=== PATIENT | male | born 1965 | race Caucasian/White ===

== ENCOUNTER 2017-02-06 09:36 | Emergency (ER) | payer BC ==
--- NOTE | 2017-02-06 09:59 | EDM.PDOC ---
ED HPI GENERAL MEDICAL PROBLEM - General Chief Complaint: Cardiovascular Problem Stated Complaint: DIZZY X AND CONFUSED Time Seen by Provider: 02/06/17 09:57 Source of Information: Reports: Patient, Family History Limitations: Reports: No Limitations - History of Present Illness INITIAL COMMENTS - FREE TEXT/NARRATIVE: 51-year-old male presents to the ED with a feeling of just feeling off kilter. States she's not felt well for the last 2-3 days. Seems to be getting intermittent episodes of dizziness which I cannot pinpoint as a true vertigo. Fixed almost to the point of spinning or off kilter. He's not staggered or lost his balance. He has a normal associated nausea vomiting. No recent falls or closed head injuries. He is working long hours 16-18 hours as of late and does feel that he is taking adequate fluids and nutrition. He is on no medications and takes no [id number] medications. He does not drink alcohol. 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 Blood pressure usually runs about 110 systolic range. He has been drinking a fair amount of water as of recent. Possibility of hyponatremia therefore exists. reports intermittent bouts of confusional state where he doesn't seem to remember what he was going to do or say. Onset: Gradual Onset Date: 02/03/17 Duration: Day(s): Location: Reports: Other (She is to be neurologically related in terms of feeling off balance but not true vertiginous episodes associated confusion only bands. These all seem to be transient. He seems to be extremely busy working 16- 18 hours a day and possibly is preoccupied by other things going on in his life. ) Quality: Reports: Other Severity: Moderate (Denies any headache.) Improves with: Reports: None Worsens with: Reports: None Context: Denies: Activity, Exercise, Lifting, Sick Contact, Trauma, Other Associated Symptoms: Reports: Confusion (Seems to not be able to remember what he was going to say or what he was going to do.), Diaphoresis, Other (Perhaps some mild night sweats.). 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 [No Known Home Meds] 02/06/17 [History] Past Medical History Cardiovascular History: Reports: CT - Past Surgical History GI Surgical History: Reports: Hernia, Inguinal Social & Family History - Tobacco Use Smoking Status *Q: Never Smoker - Caffeine Use Caffeine Use: Reports: Coffee - Recreational Drug Use Recreational Drug Use: No - Living Situation & Occupation Living situation: Reports: Occupation: Employed ED ROS GENERAL - Review of Systems Review Of Systems: See Below Constitutional: Denies: Fever, Chills, Malaise, Weakness, Fatigue HEENT: Reports: No Symptoms Respiratory: Reports: No Symptoms Cardiovascular: Reports: No Symptoms Endocrine: Reports: No Symptoms GI/Abdominal: Reports: No Symptoms : Reports: No Symptoms, Other (Nocturia 2 nightly.) Musculoskeletal: Reports: No Symptoms Skin: Reports: No Symptoms Neurological: Reports: Confusion, Dizziness, Weakness. Denies: Headache, Numbness, Paresthesia, Pre-Existing Deficit, Seizure, Syncope, Tingling, Tremors , Difficulty Walking, Change in Speech, Gait Disturbance Psychiatric: Reports: No Symptoms Hematologic/Lymphatic: Reports: No Symptoms Immunologic: Reports: No Symptoms ED EXAM, GENERAL - Physical Exam Exam: See Below Exam Limited By: No Limitations General Appearance: Alert, WD/WN, No Apparent Distress Eye Exam: Bilateral Eye: Normal Inspection, PERRL Ears: Normal TMs, Other (Denies any humming , or buzzing in his ears.) Throat/Mouth: Normal Inspection, Normal Lips, Normal Teeth, Normal Oropharynx, Other Head: Atraumatic, Normocephalic Neck: Normal Inspection (Uvula is in the midline), Supple, Non-Tender, Full Range of Motion. No: Carotid Bruit, Lymphadenopathy (L), Lymphadenopathy (R) Respiratory/Chest: No Respiratory Distress, Lungs Clear, Normal Breath Sounds Cardiovascular: Normal Peripheral Pulses, Regular Rate, Rhythm, No Edema, No Gallop, No Murmur Peripheral Pulses: 2+: Posterior Tibial (L), Posterior Tibial (R), Dorsalis Pedis (L), Dorsalis Pedis (R) GI/Abdominal: Normal Bowel Sounds, Soft, Non-Tender, No Organomegaly, No Distention (Male) Exam: No Hernia Back Exam: Normal Inspection, Full Range of Motion Extremities: Normal Inspection, Normal Range of Motion, Non-Tender, No Pedal Edema, Normal Capillary Refill Neurological: Alert, Oriented, CN II-XII Intact, Normal Cognition, Normal Gait, No Motor/Sensory Deficits, Other (Normal finger to nose and normal rapid alternating movements. No pronator drift. Cranial nerves II-12 intact.). No: Inattentive, Confused, Memory Loss Remote Events, Abnormal Gait, Abnormal Reflexes Psychiatric: Normal Affect, Normal Mood Skin Exam: Warm, Dry, Intact, Normal Color, No Rash EKG INTERPRETATION EKG Date: 02/06/17 Time: 10:20 Rhythm: NSR Rate (Beats/Min): 76 [place]: Normal P-Wave: Present QRS: Other (Nonspecific intraventricular conduction delay.) ST-T: Normal QT: Prolonged (Mildly prolonged) Course - Vital Signs Last Recorded V/S: Last Vital Signs Temp 36.1 C 02/06/17 09:41 Pulse 78 02/06/17 09:41 Resp 16 02/06/17 09:41 BP 148/92 H 02/06/17 11:23 Pulse Ox 96 02/06/17 09:41 - Orders/Labs/Meds Orders: Active Orders 24 hr Category Date Time Status EKG Documentation Completion [RC] STAT Care 02/06/17 09:59 Active Head wo Cont [CT] Stat Exams 02/06/17 09:56 Taken Labs: Laboratory Tests 02/06/17 02/06/17 02/06/17 Range/Units 10:00 10:00 10:00 WBC 6.36 (4.23-9.07) K/mm3 RBC 5.13 (4.63-6.08) M/mm3 Hgb 15.3 (13.7-17.5) gm/L Hct 44.5 (40.1-51.0) % MCV 86.7 (79.0-92.2) fl MCH 29.8 (25.7-32.2) pg MCHC 34.4 (32.2-35.5) g/dl RDW Std Deviation 41.4 (35.1-43.9) fL Plt Count 200 (163-337) K/mm3 MPV 9.5 (9.4-12.3) fl Neutrophils % (Manual) 67 H (40-60) % Band Neutrophils % 1 (0-10) % Lymphocytes % (Manual) 25 (20-40) % Atypical Lymphs % 0 % Monocytes % (Manual) 4 (2-10) % Eosinophils % (Manual) 3 (0.8-7.0) % Basophils % (Manual) 0 L (0.2-1.2) Platelet Estimate Adequate RBC Morph Comment Normal Sodium 138 (136-145) mEq/L Potassium 3.9 (3.5-5.1) mEq/L Chloride 104 (98-107) mEq/L Carbon Dioxide 26 (21-32) mEq/L Anion Gap 11.9 (5-15) BUN 18 (7-18) mg/dL Creatinine 1.0 (0.7-1.3) mg/dL Est Cr Clr Drug Dosing 90.99 mL/min Estimated GFR (MDRD) > 60 (>60) mL/min BUN/Creatinine Ratio 18.0 (14-18) Glucose 123 H (74-106) mg/dL Serum Osmolality 291 (280-300) mosm/kg Calcium 9.0 (8.5-10.1) mg/dL Total Bilirubin 0.5 (0.2-1.0) mg/dL AST 28 (15-37) U/L ALT 45 (16-63) U/L Alkaline Phosphatase 71 (46-116) U/L C-Reactive Protein < 0.2 (<1.0) mg/dL Total Protein 7.2 (6.4-8.2) g/dl Albumin 3.9 (3.4-5.0) g/dl Globulin 3.3 gm/dL Albumin/Globulin Ratio 1.2 (1-2) TSH 3rd Generation 1.670 (0.358-3.74) uIU/mL Meds: Medications Discontinued Medications Generic Name Dose Route Start Last Admin Trade Name Freq PRN Reason Stop Dose Admin Sodium Chloride 1,000 mls @ 100 mls/hr 02/06/17 10:00 02/06/17 10:02 Normal Saline IV 100 mls/hr ASDIRECTED HEAVEN Administration - Radiology Interpretation Free Text/Narrative:: 51-year-old male presents to the ED with rather nonspecific symptoms. Feels dizzy but really doesn't feel like a dim vision like is going to blackout does have a mild component of filling offkilter but not true vertigo where there is actual spinning of the room or himself. No associated nausea vomiting. He can eat okay his reports it seems to be confused at times where he seems to be lost as to what he was going to say or do next. This is very typical behavior for him. Symptoms of been present off and on for the last 3 days. Falls or closed head injuries. Examination is completely normal. This includes a neuro exam. Plan CT head will be done. Routine labs to be done IV normal saline at 100 mils per hour for now. - Re-Assessments/Exams Free Text/Narrative Re-Assessment/Exam: 02/06/17 11:10 CT of the brain was read as normal by the red and I also had a look and did not see any abnormalities whatsoever. Lab work revealed a white count of 6.36 with a normal differential hemoglobin is 15.3 hematocrit of 44.5 platelets 200,000. Sodium 138 potassium 3.9 glucose is 123 and a gap is 11.9 cm osmolality 291. No other abnormalities were appreciated lab work. Is happy dysuria this a.m. however it appears that his long working hours 16-18 hours a day are probably started to cause some issues with his ability to continue to function. He recognizes more difficult to follow sleep. He gets a very early to attend work and has a lot on his plate at this time. Therefore I think his major problem is being overstressed and not having enough down time to properly sleep etc. No treatment is advised at this time to try and cut back on work hours and getting more rest Departure - Departure Time of Disposition: 11:11 Disposition: Home, Self-Care 01 Condition: Fair Clinical Impression: Confusion, hx of, without neuro findings, Dizziness, nonspecific Instructions: Dizziness, [id number] Referrals: PCP,None [Primary Care Provider] - Forms: ED Department Discharge Additional Instructions: Evaluation in the emergency room this morning in regards to symptoms of feeling intermittently confused and disoriented as well as dizziness with near vertigo symptoms i.e. a sense of spinning offkilter. CT scan of the brain was therefore carried out in spite of a normal neuro exam hand CT of the brain proved to be completely normal. Lab work was pursued and was found to be completely normal with no evidence of any electrolyte kidney or liver problems. Therefore it appears that stress with excessive work and limited downtime to sleep and rest and pursue other enjoyable activities is starting to cause problems. Therefore of course the treatment is to try and will withdraw from the workplace 2-3 hours earlier each day and spend time either resting or pursuing a hobby or exercise program etc. Follow-up with personal physician if any further problems occur. The pressure was noted to be quite high when you came into the ED but did settle with time. It remains borderline high which would go along with hyper stress state. - My Orders Last 24 Hours: My Active Orders 02/06/17 09:56 Head wo Cont [CT] Stat 02/06/17 09:59 EKG Documentation Completion [RC] STAT - Assessment/Plan Last 24 Hours: My Active Orders 02/06/17 09:56 Head wo Cont [CT] Stat 02/06/17 09:59 EKG Documentation Completion [RC] STAT
[2017-02-06] MEDS ORDERED: Sodium Chloride 0.9% 1,000 ML IV SCH (10:00)
[2017-02-06 11:26] VITALS: BP 148/92
--- NOTE | 2017-02-07 17:37 | CT ---
Head CT Technique: Multiple axial sections through the brain were obtained. Intravenous contrast was not utilized. Comparison: No prior intracranial imaging. Findings: Ventricles along the basal cisterns and sulci over the convexities are within normal limits for the patient's age. No abnormal parenchymal densities are seen. No evidence of intracranial hemorrhage. No midline shift or mass effect is seen. Slight dolichoectasia is partially visualized within the left vertebral artery. Bone window settings were reviewed which shows the visualized sinuses to appear clear. No acute calvarial abnormality is seen. Impression: 1. Nothing acute is appreciated on noncontrast head CT exam. Diagnostic code #2 Agree with preliminary report issued by [employer] ([facility] preliminary report dictated on 02/06/17, 11:22 AM Central Time)
== END 2017-02-06 11:23 | disposition home or self-care (01) ==
LOC: JD.ED 09:36
DX: R42 Dizziness and giddiness (principal); R41.0 Disorientation, unspecified; I25.2 Old myocardial infarction; Z98.890 Other specified postprocedural states
CPT/HCPCS: 36415; 70450; 80053; 83930; 84443; 85025; 86140; 93005; 96360; 99285; J7040; 99284

== ENCOUNTER 2019-04-16 08:00 | Inpatient (IN) | payer BC ==
[~2019-04-16 08:00] MED LIST: Lactated Ringers 1,000 ML IV SCH; Lidocaine 1%/Sod Bicarbonate in NS 8.4% 1 ML Syringe IDERM PRN; Sodium Chloride 0.9% 10 ML Syringe FLUSH PRN
[2019-05-25] MEDS ORDERED: Lidocaine 1%/Sod Bicarbonate in NS 8.4% 1 ML Syringe IDERM PRN (07:44)
[2019-05-25] MEDS ORDERED: Sodium Chloride 0.9% 10 ML Syringe FLUSH PRN (07:44)
[2019-05-25] MEDS ORDERED: Lactated Ringers 1,000 ML IV SCH (07:45)
[2019-05-26] MEDS ORDERED: Lidocaine 1% with EPINEPHrine 1:100,000 20 ML MDV ONE (10:21)
[2019-05-26] MEDS ORDERED: Rocuronium 50 MG/5 ML Vial ONE (12:15)
[2019-05-26] MEDS ORDERED: Lactated Ringers 1,000 ML ONE ×4 (12:15→15:56)
[2019-05-26] MEDS ORDERED: Dexamethasone 4 MG/ML SDV ONE (12:15)
[2019-05-26] MEDS ORDERED: Lidocaine 1% 6 ML ONE (12:15)
[2019-05-26] MEDS ORDERED: Ketorolac 15 MG/ML SDV ONE (12:15)
[2019-05-26] MEDS ORDERED: ceFAZolin 1 GM Vial ONE (12:15)
[2019-05-26] MEDS ORDERED: Ondansetron 4 MG/2 ML SDV ONE (12:15)
[2019-05-26] MEDS ORDERED: fentaNYL 100 MCG/2 ML SDV ONE (12:16)
[2019-05-26] MEDS ORDERED: Propofol 200 MG/20 ML SDV ONE (12:16)
[2019-05-26] MEDS ORDERED: Midazolam 1 MG/ML 2 ML SDV ONE (12:17)
[2019-05-26] MEDS ORDERED: fentaNYL 250 MCG/5 ML SDV ONE (12:18)
[2019-05-26] MEDS ORDERED: Morphine PF 10 MG/10 ML SDV ONE (12:33)
--- NOTE | 2019-05-26 12:55 | PCM.PREANE ---
Preanesthetic Assessment - Anesthesia/Transfusion/Family Hx Anesthesia History: Prior Anesthesia Without Reaction Family History of Anesthesia Reaction: No Transfusion History: No Prior Transfusion(s) Intubation History: Unknown - Review of Systems General: No Symptoms Pulmonary: No Symptoms (snoring, ETOH: rarely) Cardiovascular: No Symptoms (elevated cholesterol, CAD in [place] artery, HTN/ history of [place] at the age of 37.) Gastrointestinal: No Symptoms Neurological: No Symptoms Other: Reports: None, Diabetes ([id number] [id number]) - Physical Assessment NPO Status Date: 05/25/19 NPO Status Time: 18:00 Vital Signs: Last Vital Signs Temp 36.4 C 05/26/19 09:55 Pulse 66 05/26/19 09:55 Resp 16 05/26/19 09:55 BP 136/84 05/26/19 09:55 Pulse Ox 96 05/26/19 09:55 Height: 1.8 m Weight: 91.172 kg ASA Class: 2 Mental Status: Alert & Oriented x3 Airway Class: Mallampati = 2 Dentition: Reports: Normal Dentition, Partial (one permanent front tooth), Caries Thyro-Mental Finger Breadths: 3 Mouth Opening Finger Breadths: 3 ROM/Head Extension: Full Lungs: Clear to Auscultation, Normal Respiratory Effort Cardiovascular: Regular Rate, Regular Rhythm, No Murmurs - Lab Values: Laboratory Last Values POC Glucose 100 mg/dL (70-105) 05/26/19 10:45 All labs reviewed and noted and within acceptable ranges to proceed with scheduled procedure. - Imaging/EKG Impressions: Cardiolyte stress Test: normal EF, no definite findings of reversible ischemia are seen Carotid US: Small amount of plaque noted in right internal carotid artery EKG: SR rate=80, borderline T wave abnormalities Echocardiogram: Mild concentric left ventricular hypertrophy, trace mitral valve regurgitation EF= 60-65% - Allergies Allergies/Adverse Reactions: Allergies Allergy/AdvReac Type Severity Reaction Status Date / Time sweet potato Allergy Vomiting Verified 05/25/19 12:21 - Anesthesia Plan Pre-Op Medication Ordered: None - Acknowledgements Anesthesia Type Planned: General Anesthesia, Epidural (for post operative pain control) Pt an Appropriate Candidate for the Planned Anesthesia: Yes Alternatives and Risks of Anesthesia Discussed w Pt/Guardian: Yes Pt/Guardian Understands and Agrees with Anesthesia Plan: Yes PreAnesthesia Questionnaire HEENT History: Reports: None Cardiovascular History: Reports: CAD, High Cholesterol, Hypertension Respiratory History: Reports: Other (See Below) Other Respiratory History: SNORING Gastrointestinal History: Reports: Other (See Below) Other Gastrointestinal History: ABDOMINAL HERNIA, INGUINAL HERNIA Genitourinary History: Reports: None CRM 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 LEAD History: Reports: None Musculoskeletal History: Reports: None Neurological History: Reports: None Psychiatric History: Reports: None Endocrine/Metabolic History: Reports: None Hematologic History: Reports: None Immunologic History: Reports: None Oncologic (Cancer) History: Reports: None Dermatologic History: Reports: None - Past Surgical History Head Surgeries/Procedures: Reports: None HEENT Surgical History: Reports: None Cardiovascular Surgical History: Reports: None Respiratory Surgical History: Reports: None GI Surgical History: Reports: Hernia, Inguinal Female Surgical History: Reports: None Male Surgical History: Reports: None Endocrine Surgical History: Reports: None Neurological Surgical History: Reports: None Musculoskeletal Surgical History: Reports: None Oncologic Surgical History: Reports: None Dermatological Surgical History: Reports: None - SUBSTANCE USE Smoking Status *Q: Never Smoker Recreational Drug Use History: No - HOME MEDS Home Medications: Home Meds Aspirin [Halfprin] 81 mg PO DAILY 05/25/19 [History] Losartan Potassium 25 mg PO DAILY 05/25/19 [History] Rosuvastatin Calcium 10 mg PO BEDTIME 05/25/19 [History] - CURRENT (IN HOUSE) MEDS Current Meds: Current Medications Discontinued Medications Bupivacaine HCl/Epinephrine Bitart (Marcaine 0.5%/Epinephrine 1:200,000) Confirm Administered Dose 50 ml .ROUTE .STK-MED ONE Stop: 05/26/19 10:22 Cefazolin Sodium (Ancef) Confirm Administered Dose 2 gm .ROUTE .STK-MED ONE Stop: 05/26/19 12:16 Dexamethasone (Dexamethasone) Confirm Administered Dose 4 mg .ROUTE .STK-MED ONE Stop: 05/26/19 12:16 Fentanyl (Sublimaze) Confirm Administered Dose 100 mcg .ROUTE .STK-MED ONE Stop: 05/26/19 12:17 Fentanyl (Sublimaze) Confirm Administered Dose 250 mcg .ROUTE .STK-MED ONE Stop: 05/26/19 12:19 Lactated Ringer's (Ringers, Lactated) 1,000 mls @ 125 mls/hr IV ASDIRECTED HEAVEN Stop: 04/16/19 23:00 Lactated Ringer's (Ringers, Lactated) 1,000 mls @ 125 mls/hr IV ASDIRECTED HEAVEN Stop: 05/25/19 23:00 Last Admin: 05/26/19 10:10 Dose: 125 mls/hr Lidocaine HCl (Xylocaine-Mpf 1%) Confirm Administered Dose 6 mls @ as directed .ROUTE .STK-MED ONE Stop: 05/26/19 12:16 Lactated Ringer's (Ringers, Lactated) Confirm Administered Dose 1,000 mls @ as directed .ROUTE .STK-MED ONE Stop: 05/26/19 12:16 Ketorolac Tromethamine (Toradol) Confirm Administered Dose 30 mg .ROUTE .STK- MED ONE Stop: 05/26/19 12:16 Lidocaine/Epinephrine (Xylocaine 1% With Epinephrine 1:100,000) Confirm Administered Dose 20 ml .ROUTE .STK-MED ONE Stop: 05/26/19 10:22 Lidocaine/Sodium Bicarbonate (Buffered Lidocaine 1% In Ns 8.4%) 0.25 ml IDERM ONETIME PRN PRN Reason: Prior to IV Start Stop: 04/16/19 18:00 Lidocaine/Sodium Bicarbonate (Buffered Lidocaine 1% In Ns 8.4%) 0.25 ml IDERM ONETIME PRN PRN Reason: Prior to IV Start Stop: 05/25/19 18:00 Last Admin: 05/26/19 10:09 Dose: 0.25 ml Midazolam HCl (Versed 1 Mg/Ml) Confirm Administered Dose 2 mg .ROUTE .STK-MED ONE Stop: 05/26/19 12:18 Morphine Sulfate (Duramorph Pf) Confirm Administered Dose 10 mg .ROUTE .STK-MED ONE Stop: 05/26/19 12:34 Ondansetron HCl (Zofran) Confirm Administered Dose 4 mg .ROUTE .STK-MED ONE Stop: 05/26/19 12:16 Propofol (Diprivan 20 Ml) Confirm Administered Dose 200 mg .ROUTE .STK-MED ONE Stop: 05/26/19 12:17 Rocuronium [place] (Zemuron) Confirm Administered Dose 50 mg .ROUTE .STK-MED ONE Stop: 05/26/19 12:16 Sodium Chloride (Saline Flush) 10 ml FLUSH ASDIRECTED PRN PRN Reason: Keep Vein Open Stop: 04/16/19 18:00 Sodium Chloride (Saline Flush) 10 ml FLUSH ASDIRECTED PRN PRN Reason: Keep Vein Open Stop: 05/25/19 18:00
[2019-05-26] MEDS ORDERED: Bupivacaine 0.25% 10 ML SDV ONE (13:22)
--- NOTE | 2019-05-26 14:14 | PCM.SN ---
- Free Text/Narrative Note: Date: 05/26/2019 Time Out: 1325 Start: 1326 Stop: 1345 Procedure: Epidural catheter placement for post operative pain control requested by Dr. Montejo. Chart reviewed, allergies noted, consent signed, and risk/benefits discussed with patient. Patient sitting up for Epidural placement. Monitors/alarms on/ O2 placed at 3LPM. Versed 2mg IV given at 1330. L3-L4 location noted and prepped times 3 betadine swabs. Site localized with 3ml's of 1% lidocaine 17 gauge tuohy advanced with CLARISA noted at 5cm. 19 gauge catheter placed and secured via tegaderm at 10cm. Epidural site secured with tape and dosed up with the following medications: (-) test dose: 45mg lidocaine with 15mcg of epinepherine. 100 mcg of fentanyl 10ml's of 0.25% marcaine Dosing involved negative aspiration and incremental dosing. Filter and Cap noted on epidural catheter along with label. Thank you. Arely VICTORIA
[2019-05-26] MEDS ORDERED: Rocuronium 100 MG/10 ML MDV ONE (14:19)
[2019-05-26] MEDS: Bupivacaine 0.5%/EPINEPHrine 1:200,000 50 ML MDV ONE ×2 (14:37→16:00)
[2019-05-26] MEDS ORDERED: Phenylephrine/Normal Saline 100 MCG/ML 10 ML Syringe ONE (14:50)
[2019-05-26] MEDS ORDERED: HYDROmorphone 0.5 MG/0.5 ML Syringe ONE ×2 (15:37→16:01)
[2019-05-26] MEDS ORDERED: diphenhydrAMINE 50 MG/ML SDV IVPUSH PRN (15:50)
[2019-05-26] MEDS ORDERED: fentaNYL 100 MCG/2 ML SDV IVPUSH PRN (15:50)
[2019-05-26] MEDS ORDERED: ePHEDrine 50 MG/ML SDV IVPUSH PRN (15:50)
[2019-05-26] MEDS ORDERED: Haloperidol Lactate 5 MG/ML SDV IVPUSH PRN (15:50)
[2019-05-26] MEDS ORDERED: Ondansetron 4 MG/2 ML SDV IVPUSH PRN (15:50)
[2019-05-26] MEDS ORDERED: HYDROmorphone 0.5 MG/0.5 ML Syringe IVPUSH PRN (15:50)
[2019-05-26] MEDS ORDERED: Neostigmine Methylsulfate 1 MG/ML 5 ML Syringe ONE (15:59)
[2019-05-26] MEDS ORDERED: Phenylephrine 1 MG in Sodium Chloride 0.9% 10 ML IV SCH (16:00)
[2019-05-26] MEDS ORDERED: Lactated Ringers 1,000 ML IV SCH (16:45)
--- NOTE | 2019-05-26 17:01 | PCM.PRNOTE ---
- Free Text/Narrative Note: Date: 05/26/2019 Operation: open redo right inguinal hernia repair via laparotomy and retrorectus repair of ventral hernia Surgeon: Cosmo Montejo MD Findings: remnant of old mesh repair noted during exposure and reduction of right inguinal hernia. The mouth of the hernia was wide enough to permit my index finger snugly. The sac was inverted, and it was noted to be large and thick, and there may have been a sliding component involving bladder. Mongolian cheese fascia along midline with small fat containing hernias. Diastasis recti. Reeve-Stoppa repair completed. Detailed Report: The patient was taken to the operating room and placed supine. Timeout was performed, and general endotracheal anesthesia was administered. The left arm was tucked to the patient side, and a [place] catheter was placed. Abdominal hair was clipped. The abdomen was prepped and draped in usual sterile fashion. A midline laparotomy incision was made from the mid epigastrium to the infraumbilical region between the umbilicus and the pubic symphysis. A small epigastric hernia sac was encountered on dissection, sac was opened and omental fat was reduced. The surgeons left finger was inserted into the abdominal cavity, and the laparotomy was extended providing exposure of the abdominal contents. The Bookwalter retractor was set up to aid with exposure of the right inguinal region. Once the mouth of the hernia was correctly identified, the peritoneum was incised from the intraperitoneal side as would be done with a standard laparoscopic inguinal hernia repair. The preperitoneal fat was reflected anteriorly away from the peritoneum, and the plane was developed down towards the pubic bone. Buddy's ligament was palpated, and dissection was done circumferentially bluntly with the finger to help free up the hernia sac. With continued manipulation, the hernia sac was inverted, and by palpation the spermatic cord was preserved in its proper position. The peritoneum was attracted in order to provide adequate exposure of the myopectineal orifice for placement of mesh. A 9 x 15 cm piece of pro-cost accounting clerk mesh was cut to shape, and laid in the pocket of dissection, with good medial and inferior overlap at Buddy's ligament.?Was secured in place at this location with a single tacking Vicryl suture. Peritoneal flap was then closed over the mesh closure with a few interrupted Vicryl sutures. The hernia sac was thickened and large, and rather than pursue resection, I left in place after cleaning it up some due to concern for sliding hernia involving bladder or other viscera, although the sigmoid colon was well retracted away from the field of dissection. Next, we turned our attention to the ventral abdominal wall repair. The posterior aspect of the rectus sheath was grasped medially, and incised in order to expose the medial aspect of the rectus muscle. This line of division was extended superiorly and inferiorly, and the rectus muscle was reflected laterally, providing good exposure of the posterior sheath. With the plane for mesh placement cleared, a running 0 PDS suture was used to reclose the posterior sheath re-creating the linea alba. The mesh was laid in place and secured at the superior midline portion with a single Prolene suture. The mesh lay flat nicely in the retrorectus space. The anterior fascia was then cleared of overlying subcutaneous fat a few centimeters off of midline around the length of the incision. Anterior fascia was closed with running 0 PDS suture. Skin was closed with skin oriana, and the wound was dressed with gauze and Tegaderm. A total of 20 cc 0.5% Marcaine with epinephrine was injected along the length of the incision. The patient tolerated the procedure well. Cosmo Montejo MD General Surgery
--- NOTE | 2019-05-26 17:19 | PCM.POSTAN ---
POST ANESTHESIA ASSESSMENT - MENTAL STATUS Mental Status: Alert - VITAL SIGNS Vital Signs: Last Vital Signs Temp 97.5 05/26/19 165 Pulse 79 05/26/19 1657 Resp 22 05/26/191656 BP 151/97 05/26/191656 Pulse Ox 92% 05/26/191656 - RESPIRATORY Respiratory Status: Respiratory Rate WNL, Airway Patent, O2 Saturation Stable, Supplemental Oxygen - CARDIOVASCULAR CV Status: Pulse Rate WNL, Blood Pressure Stable - GASTROINTESTINAL GI Status: No Symptoms - POST OP HYDRATION Hydration Status: Adequate & Stable
[2019-05-26] MEDS: Acetaminophen 325 MG Tab PO SCH (19:45)
[2019-05-27] MEDS: Acetaminophen 325 MG Tab PO SCH ×3 (01:17→16:25)
--- NOTE | 2019-05-27 04:48 | PCM48HPAN ---
Post Anesthesia Note - EVALUATION WITHIN 48HRS OF ANESTHETIC Vital Signs in Normal Range: Yes Patient Participated in Evaluation: No Respiratory Function Stable: Yes Airway Patent: Yes Cardiovascular Function Stable: Yes Hydration Status Stable: Yes Pain Control Satisfactory: Yes Mental Status Recovered: Yes Vital Signs: Last Vital Signs Temp 36.7 C 05/27/19 01:29 Pulse 77 05/27/19 01:29 Resp 18 05/27/19 01:29 BP 91/54 L 05/27/19 01:29 Pulse Ox 93 L 05/27/19 01:29 - COMMENTS/OBSERVATIONS Free Text/Narrative:: Nursing Staff states patient has not c/o of any pain. No c/o noted at this time. VSS, patient able to move legs, anticipate ambulation this morning.
--- NOTE | 2019-05-27 07:57 | PCM.SN ---
- Free Text/Narrative Note: Date: 05/27/2019 S: POD 1 s/p open right inguinal and retrorectus ventral hernia repair, did very well overnight with no pain issues. Tolerating clears without nausea. No flatus. O: AF_ SBP 90s, HR 70s, SpO2 94% on 5 L NC Gen: awake and alert, no distress HEENT: NC in place Abd: binder in place, dressing with some serosanguinous staining, slightly distended : grossly normal appearance with right testicle in scrotum Neuro: epidural catheter in place A: Right inguinal and ventral hernia repair 05/26/2019, doing very well. P: -continue epidural until tomorrow for pain control; anesthesia team managing -wean O2; continue IS and ambulate at least three times daily around nurses station -marcelina IV fluids -regular diet -bowel regimen- miralax, colace -remove caldwell catheter, f/u void -heparin 5000 u SC tid; hold tomorrow AM in anticipation of epidural catheter removal -SCDs -anticipate discharge to home tomorrow if all continues to go well
[2019-05-27] MEDS: Polyethylene Glycol 3350 Powder 17 GM Packet PO SCH (08:23)
[2019-05-27] MEDS: Heparin Sodium 5,000 Units/ML Vial SUBCUT SCH ×2 (08:23→16:25)
[2019-05-27] MEDS: Docusate Sodium 100 MG Cap PO SCH (08:24)
[2019-05-27] MEDS: Rosuvastatin 10 MG Tab PO SCH (08:24)
[2019-05-27] MEDS ORDERED: Morphine PF 10 MG/10 ML SDV ONE (15:15)
--- NOTE | 2019-05-27 15:42 | PCM.SN ---
- Free Text/Narrative Note: 05/27/2019 [id number] Patient visit regarding epidural and post op pain control. Patient states only a pain score of 1. Vitals stable. Dr. Montejo notified and plan discussed. Will proceed with Morphine PF via epidural with plans to remove epidural tomorrow am at 0700. Epidural redosed with 4 mg Morphine PF. Will continue with monitoring patient as before with continuous pulse ox and every 1 hour resp checks. Abdominal binder in place. Patient watching TV. States he feels good.
[2019-05-27] MEDS ORDERED: diphenhydrAMINE 50 MG/ML SDV IVPUSH PRN (16:04)
[2019-05-28] MEDS: Heparin Sodium 5,000 Units/ML Vial SUBCUT SCH ×3 (00:42→16:42)
[2019-05-28] MEDS: Acetaminophen 325 MG Tab PO SCH ×3 (01:57→16:40)
--- NOTE | 2019-05-28 08:28 | PCM.SN ---
- Free Text/Narrative Note: 0810 In room for epidural assessment. Patient states "No pain". Anticipate pt to be discharged home today. Epidural D/C with tip intact. Pt eating and watching TV. No c/o. Out of room at 0826.
[2019-05-28] MEDS: Polyethylene Glycol 3350 Powder 17 GM Packet PO SCH (09:15)
[2019-05-28] MEDS: Docusate Sodium 100 MG Cap PO SCH (09:16)
[2019-05-28] MEDS: Rosuvastatin 10 MG Tab PO SCH (09:16)
--- NOTE | 2019-05-28 14:39 | PCM.SN ---
- Free Text/Narrative Note: POD 2 s/p open ventral and right inguinal hernia repair. Had urinary retention of 650 cc after voiding yesterday, caldwell catheter replaced. No other issues. S: tolerating diet, passing flatus. Pain minimal, ambulating. Still on a bit of supplemental O2 but VSS. O: AF-VSS no distress, awake and alert [address] RRR Abd: mild distention, minimally tender, incision site clean and intact : normal external appearance A: Doing well 2 days out from hernia repair. Plan for epidural catheter removal, repeat trial of void. If still retaining, plan for discharge to home with leg bag to allow for healing of bladder stretch injury. If he otherwise is doing well and can wean of supplemental oxygen he may discharge to home today or tomorrow.
--- NOTE | 2019-05-28 18:30 | PCM.DCSUM1 ---
Discharge Summary - Hospital Course Free Text/Narrative:: Presented for elective open repair of recurrent right inguinal and ventral hernia. Reeve-Stoppa repair and right pre-peritoneal mesh repair of recurrent inguinal hernia completed 05/26. Did well postoperatively with excellent pain control with per-operatively placed epidural catheter. He was able to ambulate, eat, pass flatus and wean off O2 supplementation by 05/28/2019. The epidural catheter was removed the morning of 05/28 after holding his AM prophylactice heparin dose. He had some urinary retention after initial urinary catheter removal on 05/27 with residual 650 cc after replacement, and so the catheter was left in for another 24 hrs. Repeat post-void residual was measured after spontaneous void of 200 cc. He was deemed fit for discharge to home at that time ; he will go home with urinary catheter replaced if there is evidence of retention. - Discharge Data Discharge Date: 05/28/19 Discharge Disposition: Home, Self-Care 01 Condition: Good - Referral to Home Health Primary Care Physician: Sudheer Pederson MD - Patient Instructions Diet: Regular Diet as Tolerated Activity: As Tolerated, No Lifting Over 10 Pounds Showering/Bathing: May Shower Wound/Incision Care: Keep Operative Site/Wound Site Clean and Dry Notify Provider of: Fever, Increased Pain, Swelling and Redness, Drainage, Nausea and/or Vomiting - Discharge Plan *PRESCRIPTION DRUG MONITORING PROGRAM REVIEWED*: Not Applicable *COPY OF PRESCRIPTION DRUG MONITORING REPORT IN PATIENT MARIE: Not Applicable Prescriptions/Med Rec: oxyCODONE 5 mg PO Q4H PRN #20 tab PRN Reason: Pain Home Medications: Home Meds Aspirin [Halfprin] 81 mg PO DAILY 05/25/19 [History] Losartan Potassium 25 mg PO DAILY 05/25/19 [History] Rosuvastatin Calcium 10 mg PO BEDTIME 05/25/19 [History] oxyCODONE 5 mg PO Q4H PRN #20 tab 05/28/19 [Rx] Oxygen Therapy Mode: Room Air Patient Handouts: Inguinal Hernia, Adult, [id number], Hernia, Adult, Easy-to- Read Referrals: Sudheer Pederson MD [Primary Care Provider] - Cosmo Montejo MD [Physician] - - Discharge Summary/Plan Comment DC Time >30 min.: No - Patient Data Vitals - Most Recent: Last Vital Signs Temp 36.8 C 05/28/19 16:35 Pulse 91 05/28/19 16:35 Resp 18 05/28/19 17:00 BP 117/70 05/28/19 16:35 Pulse Ox 90 L 05/28/19 16:35 Weight - Most Recent: 95.799 kg I&O - Last 24 hours: Intake & Output 05/28/19 05/28/19 05/28/19 06:59 14:59 22:59 Intake Total 801 228 7748 Output Total 1250 1800 Balance -950 360 -640 Med Orders - Current: Current Medications Acetaminophen (Tylenol) 975 mg PO Q8H [facility] Last Admin: 05/28/19 16:40 Dose: 975 mg Aspirin (Halfprin) 81 mg PO DAILY [facility] Docusate Sodium (Colace) 100 mg PO DAILY [facility] Last Admin: 05/28/19 09:16 Dose: 100 mg Heparin Sodium (Porcine) (Heparin Sodium) 5,000 units SUBCUT Q8H [facility] Last Admin: 05/28/19 16:42 Dose: 5,000 units Losartan Potassium (Cozaar) 25 mg PO DAILY [facility] Polyethylene Glycol (Miralax) 17 gm PO DAILY [facility] Last Admin: 05/28/19 09:15 Dose: 17 gm Rosuvastatin Calcium (Crestor) 10 mg PO DAILY [facility] Last Admin: 05/28/19 09:16 Dose: 10 mg Discontinued Medications Bupivacaine HCl (Sensorcaine-Mpf 0.25%) Confirm Administered Dose 10 ml .ROUTE .STK-MED ONE Stop: 05/26/19 13:23 Bupivacaine HCl/Epinephrine Bitart (Marcaine 0.5%/Epinephrine 1:200,000) Confirm Administered Dose 50 ml .ROUTE .STK-MED ONE Stop: 05/26/19 10:22 Last Admin: 05/26/19 16:00 Dose: 20 ml Cefazolin Sodium (Ancef) Confirm Administered Dose 2 gm .ROUTE .STK-MED ONE Stop: 05/26/19 12:16 Dexamethasone (Dexamethasone) Confirm Administered Dose 4 mg .ROUTE .STK-MED ONE Stop: 05/26/19 12:16 Diphenhydramine HCl (Benadryl) 25 mg IVPUSH Q6H PRN PRN Reason: pruritis Stop: 05/26/19 18:00 Diphenhydramine HCl (Benadryl) 25 mg IVPUSH Q6H PRN PRN Reason: pruritis Ephedrine Sulfate (Ephedrine Sulfate) 5 mg IVPUSH ASDIRECTED PRN PRN Reason: Hypotension Stop: 05/26/19 18:00 Fentanyl (Sublimaze) Confirm Administered Dose 100 mcg .ROUTE .STK-MED ONE Stop: 05/26/19 12:17 Fentanyl (Sublimaze) Confirm Administered Dose 250 mcg .ROUTE .STK-MED ONE Stop: 05/26/19 12:19 Fentanyl (Sublimaze) 50 mcg IVPUSH Q5M PRN PRN Reason: Pain Stop: 05/26/19 18:00 Glycopyrrolate () Confirm Administered Dose 1 mg .ROUTE .STK-MED ONE Stop: 05/26/19 16:00 Haloperidol Lactate (Haldol) 1 mg IVPUSH ONETIME PRN PRN Reason: PERSISTENT NAUSEA Stop: 05/26/19 18:00 Hydromorphone HCl (Dilaudid) Confirm Administered Dose 0.5 mg .ROUTE .STK-MED ONE Stop: 05/26/19 15:38 Hydromorphone HCl (Dilaudid) 0.5 mg IVPUSH Q15M PRN PRN Reason: Pain (severe 7-10) Stop: 05/26/19 18:00 Hydromorphone HCl (Dilaudid) Confirm Administered Dose 0.5 mg .ROUTE .STK-MED ONE Stop: 05/26/19 16:02 Lactated Ringer's (Ringers, Lactated) 1,000 mls @ 125 mls/hr IV ASDIRECTED [facility] Stop: 04/16/19 23:00 Lactated Ringer's (Ringers, Lactated) 1,000 mls @ 125 mls/hr IV ASDIRECTED [facility] Stop: 05/25/19 23:00 Last Admin: 05/26/19 10:10 Dose: 125 mls/hr Lidocaine HCl (Xylocaine-Mpf 1%) Confirm Administered Dose 6 mls @ as directed .ROUTE .STK-MED ONE Stop: 05/26/19 12:16 Lactated Ringer's (Ringers, Lactated) Confirm Administered Dose 1,000 mls @ as directed .ROUTE .STK-MED ONE Stop: 05/26/19 12:16 Lactated Ringer's (Ringers, Lactated) Confirm Administered Dose 1,000 mls @ as directed .ROUTE .STK-MED ONE Stop: 05/26/19 15:29 Lactated Ringer's (Ringers, Lactated) Confirm Administered Dose 1,000 mls @ as directed .ROUTE .STK-MED ONE Stop: 05/26/19 15:29 Phenylephrine HCl 1 mg/ Sodium (Chloride) 10.1 mls @ 1 mls/sec IV TITRATE HEAVEN; Protocol Stop: 05/26/19 18:00 Lactated Ringer's (Ringers, Lactated) Confirm Administered Dose 1,000 mls @ as directed .ROUTE .STK-MED ONE Stop: 05/26/19 15:57 Lactated Ringer's (Ringers, Lactated) 1,000 mls @ 100 mls/hr IV ASDIRECTED [facility] Last Admin: 05/27/19 01:26 Dose: 100 mls/hr Ketorolac Tromethamine (Toradol) Confirm Administered Dose 30 mg .ROUTE .STK- MED ONE Stop: 05/26/19 12:16 Lidocaine/Epinephrine (Xylocaine 1% With Epinephrine 1:100,000) Confirm Administered Dose 20 ml .ROUTE .STK-MED ONE Stop: 05/26/19 10:22 Lidocaine/Sodium Bicarbonate (Buffered Lidocaine 1% In Ns 8.4%) 0.25 ml IDERM ONETIME PRN PRN Reason: Prior to IV Start Stop: 04/16/19 18:00 Lidocaine/Sodium Bicarbonate (Buffered Lidocaine 1% In Ns 8.4%) 0.25 ml IDERM ONETIME PRN PRN Reason: Prior to IV Start Stop: 05/25/19 18:00 Last Admin: 05/26/19 10:09 Dose: 0.25 ml Midazolam HCl (Versed 1 Mg/Ml) Confirm Administered Dose 2 mg .ROUTE .STK-MED ONE Stop: 05/26/19 12:18 Morphine Sulfate (Duramorph Pf) Confirm Administered Dose 10 mg .ROUTE .STK-MED ONE Stop: 05/26/19 12:34 Morphine Sulfate (Duramorph Pf) Confirm Administered Dose 10 mg .ROUTE .STK-MED ONE Stop: 05/27/19 15:16 Neostigmine Methylsulfate (Neostigmine) Confirm Administered Dose 5 mg .ROUTE .STK-MED ONE Stop: 05/26/19 16:00 Ondansetron HCl (Zofran) Confirm Administered Dose 4 mg .ROUTE .STK-MED ONE Stop: 05/26/19 12:16 Ondansetron HCl (Zofran) 4 mg IVPUSH ONETIME PRN PRN Reason: Nausea/Vomiting Stop: 05/26/19 18:00 Phenylephrine HCl (Phenylephrine In Ns 100 Mcg/Ml) Confirm Administered Dose 1 mg .ROUTE .STK-MED ONE Stop: 05/26/19 14:51 Propofol (Diprivan 20 Ml) Confirm Administered Dose 200 mg .ROUTE .STK-MED ONE Stop: 05/26/19 12:17 Rocuronium [place] (Zemuron) Confirm Administered Dose 50 mg .ROUTE .STK-MED ONE Stop: 05/26/19 12:16 Rocuronium [place] (Zemuron) Confirm Administered Dose 100 mg .ROUTE .STK-MED ONE Stop: 05/26/19 14:20 Sodium Chloride (Saline Flush) 10 ml FLUSH ASDIRECTED PRN PRN Reason: Keep Vein Open Stop: 04/16/19 18:00 Sodium Chloride (Saline Flush) 10 ml FLUSH ASDIRECTED PRN PRN Reason: Keep Vein Open Stop: 05/25/19 18:00
[2019-05-28 22:59] VITALS: BP 122/79; PULSE 66
[2019-05-29] MEDS ORDERED: Aspirin 81 MG Tab.EC PO SCH (09:00)
[2019-05-29] MEDS ORDERED: Losartan 25 MG Tab PO SCH (09:00)
== END 2019-05-28 20:40 | disposition home or self-care (01) | DRG 227 ==
LOC: JD.MS 05-26 09:39
PROVIDERS: ADMIT Surgery; ATTEND Surgery
PROC: 0YU50JZ Supplement Right Inguinal Region with Synthetic Substitute, Open Approach (ICD-10-PCS; principal; 2019-05-26)
PROC: 0WUF0JZ Supplement Abdominal Wall with Synthetic Substitute, Open Approach (ICD-10-PCS; 2019-05-26)
PROC: 3E0R3BZ Introduction of Anesthetic Agent into Spinal Canal, Percutaneous Approach (ICD-10-PCS; 2019-05-27)
DX: K40.91 Unilateral inguinal hernia, without obstruction or gangrene, recurrent (principal); K43.9 Ventral hernia without obstruction or gangrene; R33.9 Retention of urine, unspecified; I25.10 Atherosclerotic heart disease of native coronary artery without angina pectoris; I10 Essential (primary) hypertension; E78.00 Pure hypercholesterolemia, unspecified; E78.6 Lipoprotein deficiency; Z79.82 Long term (current) use of aspirin; Z79.899 Other long term (current) drug therapy
CPT/HCPCS: 36415; 51701; 51702; 51798; 80048; 82962; 85025; 86850; 86900; 86901; 94762; A9270-GY; C1781; J0690; J1100; J1170; J1644; J1885; J2001; J2250; J2270; J2370; J2405; J2704; J2710; J3010; J3490; J7120